=== PATIENT | female | born 1965 | race Caucasian/White ===

== ENCOUNTER 2018-10-24 20:22 | Emergency (ER) | payer OTHER ==
[~2018-10-24] VITALS: Ht 154.9 cm; Wt 83.6 kg
[2018-10-24 20:52] VITALS: BP 152/83
[2018-10-24] MEDS ORDERED: TETanus/Pertussis (Acell)/Diphther VAC/PF (Tdap-Adult) 0.5ml syringe IM ONE (23:20)
[2018-10-24] MEDS ORDERED: bacitracin 15gm ointment TP ONE (23:20)
[2018-10-24] MEDS ORDERED: LIDOcaine 1% w/epiNEPHrine 1:200,000 30ml vial IM ONE (23:20)
[2018-10-24] MEDS ORDERED: AMOX-419 PO (23:38)
[2018-10-24] MEDS ORDERED: TRAM50TA2 PO (23:38)
== END 2018-10-25 01:11 | disposition home or self-care (01) ==
LOC: ER 20:23
DX: S61.214A Laceration without foreign body of right ring finger without damage to nail, initial encounter (principal); S61.234A Puncture wound without foreign body of right ring finger without damage to nail, initial encounter; Z79.899 Other long term (current) drug therapy; W54.0XXA Bitten by dog, initial encounter; Y93.89 Activity, other specified; Y92.89 Other specified places as the place of occurrence of the external cause; Y99.8 Other external cause status
CPT/HCPCS: 12001; 90471; 90715; 99284; J3490

== ENCOUNTER 2021-12-06 16:10 | Emergency (ER) | payer OTHER ==
[~2021-12-06] VITALS: Ht 157.5 cm; Wt 83.6 kg
[2021-12-06 16:45] LABS: BASOPHILS # (AUTO) 0.1 X10'3 (0-0.2); BASOPHILS % (AUTO) 0.7 % (0-1); EOSINOPHILS # (AUTO) 0.3 X10'3 (0-0.9); EOSINOPHILS % (AUTO) 4.2 % (0-6); HEMATOCRIT 44.7 % (35.0-45.0); HEMOGLOBIN 15.1 g/dl (12.0-16.0); LYMPHOCYTES # (AUTO) 1.4 X10'3 (1.1-4.8); LYMPHOCYTES % (AUTO) 20.5 % (21-51); MEAN CORPUSCULAR HEMOGLOBIN 31.5 PG (27.0-31.0); MEAN CORPUSCULAR HGB CONC 33.9 g/dL (33.0-36.5); MEAN PLATELET VOLUME 7.6 FL (7.4-10.4); MONOCYTES # (AUTO) 0.5 X10'3 (0-0.9); MONOCYTES % (AUTO) 7.4 % (2-12); NEUTROPHILS # (AUTO) 4.6 X10'3 (1.8-7.7); NEUTROPHILS % (AUTO) 67.2 % (42-75); PLATELET COUNT 216 X10'3 (140-440); RED BLOOD COUNT 4.81 X10'6 (4.20-5.60); RED CELL DISTRIBUTION WIDTH 13.7 % (11.5-14.5); WHITE BLOOD COUNT 6.9 X10'3 (4.5-11.0)
[2021-12-06 17:02] LABS: ALANINE AMINOTRANSFERASE 32 U/L (12-78); ALBUMIN/GLOBULIN RATIO 1.1 (1.1-1.5); ALKALINE PHOSPHATASE 84 IU/L (46-116); ANION GAP 11 (8-16); ASPARTATE AMINO TRANSFERASE 20 U/L (10-37); BILIRUBIN,TOTAL 0.3 MG/DL (0.1-1.0); BLOOD UREA NITROGEN 21 MG/DL (7-18); BUN/CREATININE RATIO 23.1 (6.6-38.0); C-REACTIVE PROTEIN 0.44 MG/DL (0.0-0.5); CALCIUM 9.1 MG/DL (8.5-10.1); CHLORIDE 107 MMOL/L (99-107); CREATININE 0.91 MG/DL (0.40-0.90); GLUCOSE 194 MG/DL (70-104); MAGNESIUM 2.3 MG/DL (1.5-2.4); POTASSIUM 3.9 MMOL/L (3.5-5.1); SODIUM 144 MMOL/L (135-145); TOTAL CARBON DIOXIDE 26.4 MMOL/L (24-32); TOTAL PROTEIN 7.6 G/DL (6.4-8.2); eGFR 64 ML/MIN
[2021-12-06] MEDS ORDERED: BEBTELOVIMAB 175 MG/2 ML VIAL IV ONE (17:30)
[2021-12-06 19:10] VITALS: BP 136/80
== END 2021-12-06 19:21 | disposition home or self-care (01) ==
LOC: ER 16:10
DX: U07.1 COVID-19 (principal); J12.82 Pneumonia due to coronavirus disease 2019; J02.9 Acute pharyngitis, unspecified; R53.83 Other fatigue; I10 Essential (primary) hypertension; E11.9 Type 2 diabetes mellitus without complications
CPT/HCPCS: 36415; 71045; 80053; 83735; 84145; 85025; 85379; 86140; 87635; 99291; C9803; M0222; Q0222

== ENCOUNTER 2024-10-31 12:28 | Emergency (ER) | payer OTHER ==
[~2024-10-31] VITALS: Ht 157.5 cm; Wt 81.8 kg
[2024-10-31 12:37] VITALS: BP 120/71; PULSE 98; TEMP 98; O2SAT 96
[2024-10-31 13:50] VITALS: RESP 16
--- NOTE | 2024-10-31 14:42 | Physician Documentation ---
History of Present Illness ~ Chief Complaint: Cold, cough & congestion Stated Complaint: COLD SYMPTOMS Time Seen by MD: 13:14 Primary Medical Doctor: sasha [facility]all [facility] HPI This is a 58 year female who presents with cough, sore throat, and nasal con gestion for the past four days, patient reports family members with similar symptoms who have tested positive for COVID-19. Patient reports no other acute symptoms or concerns including no chest pain or shortness of breath. Medication Reconciliation Allergies: Coded Allergies: No Known Allergies (Unverified , 10/24/18) Scheduled Fluticasone Propionate (Flonase), 2 SPRAYS BOTHNARES DAILY Past Medical History Past Medical History: Hypertension, Diabetes Past Surgical History: no surgical history Alcohol Use: None Drug Use: none Lives with: Spouse Lives In: Home Review of Systems ROS Cough, nasal congestion, sore throat as stated above in the HPI, otherwise all systems are reviewed and negative. Physical Exam Vital Signs: Temperature: 98.0, Source: Temporal, Heart Rate: 98, Respiratory Rate: 16, BP: 120/71, Pulse Oximetry: 96, Weight: 81.800 Physical Exam VITALS: Reviewed and as above. GENERAL: Alert, nontoxic appearing, no apparent distress. RESPIRATORY: No increased work of breathing, no respiratory distress, speaking in full clear sentences, clear lung sounds in all [place] CV: Regular rate and rhythm no murmur Progress Results/Orders Results/Orders Orders - NYLA FELIX DIRECTOR OF PROGRAMMING Covid19 Binax Poc Result Entry (10/31/24 13:16) Vital Signs 10/31/24 10/31/24 12:37 13:50 Temp 98.0 Pulse 98 Resp 18 16 B/P (MAP) 120/71 Pulse Ox 96 Laboratory Tests Test 10/31/24 13:19 SARS-CoV-2 Antigen (Rapid) Positive *A Medical Decision Making Findings This 58-year-old female presented with four days of cough, nasal congestion, and sore throat, she did test positive for COVID-19, symptoms are consistent with upper respiratory tract due to COVID-19. Her physical exam was benign without e vidence of respiratory distress or hypoxia. Was reassuring patient reported no chest pain or shortness of breath. Vital signs stable and patient is appropriate for outpatient follow up. I discussed with the patient the option of Paxlovid due to her history of well-controlled type 2 diabetes though shared decision-making patient did decline due to the risks from medication intera ctions. Differential Dx:Considerations: Include: Allergic rhinitis, Pneumonia, Pnuemonitis, Sinusitis Departure Disposition: HOME / SELF CARE / HOMELESS Impression: Primary Impression: Upper respiratory tract infection due to 2019 novel coronavirus Condition: Improved Discharge Instructions: Upper Respiratory Infection, Adult Additional Instructions: Treatment for COVID-19 supportive care with maintaining adequate hydration and rest. Make sure you are covering your cough, wearing a mask when around others, and washing your hands frequently. May use ibuprofen and or Tylenol as directed by the [id number] packaging as needed for pain and fever. Seub-oxi-mrlnomt nasal saline rinses and Flonase may help with nasal congestion. Please follow up with your primary care provider in the next few days. Please return to the emergency department for any new or worsening concerning symptoms including but not limited to chest pain, shortness of breath, or a fever over 100.4 that does not lower with ibuprofen or Tylenol. Referrals: NO PRIMARY CARE PROVIDER (PCP) Prescriptions Fluticasone Propionate (Flonase) 16 Gm [place].susp 2 SPRAYS BOTHNARES DAILY for 30 Days, #16 GM Prov: NYLA FELIX 10/31/24 Education Educated: Patient Educated regarding: diagnosis, treatment, prognosis, need for follow up Signature Scribe Signature: No scribe Attestation: The note accurately reflects work and decisions made by me.ANDREZ Sloan 10/31/24 21:57 NYLA FELIX October 31, 2024 14:41
[2024-10-31] MEDS ORDERED: FLUT16SP2 BOTHNARES (15:34)
== END 2024-10-31 16:08 | disposition home or self-care (01) ==
LOC: ER 12:29
DX: U07.1 COVID-19 (principal); J06.9 Acute upper respiratory infection, unspecified; E11.9 Type 2 diabetes mellitus without complications; I10 Essential (primary) hypertension
CPT/HCPCS: 36415; 87811; 99283